=== PATIENT | male | born 1990 | race American Indian/Alaskan Native ===

== ENCOUNTER 2020-05-21 21:49 | Emergency (ER) | payer SELFPAY ==
[2020-05-21] MEDS ORDERED: AMIODARONE 150 MG/3 ML INJ IV ONE (23:10)
== END 2020-05-21 22:00 | disposition left against medical advice (07) ==
LOC: ED 21:49
DX: M79.10 Myalgia, unspecified site (principal); Z53.21 Procedure and treatment not carried out due to patient leaving prior to being seen by health care provider
CPT/HCPCS: J0282